=== PATIENT | male | born 1955 | race Caucasian/White ===

== ENCOUNTER 2016-10-17 19:19 | Emergency (ER) | payer OTHER ==
[~2016-10-17] VITALS: Ht 162.6 cm; Wt 65.0 kg
[~2016-10-17 19:19] MED LIST: ASPI81 PO; CYMB60CA PO; DIAZ10TA2 PO; ENOX60P SQ; GABA300 PO; LIDO5DIS35 TD; METO50TA PO; PANT20 PO; PERC10TA27 PO; PERC5TAB12 PO; SUCR1TAB PO; WARF4 PO; ZOCO10TA PO
[2016-10-17 19:22] VITALS: BP 147/99; PULSE 98; RESP 15; TEMP 98.1; O2SAT 95
[2016-10-17] MEDS ORDERED: PERC10TA27 PO (19:50)
[2016-10-17] MEDS ORDERED: CARA1TAB6 PO (19:50)
[2016-10-17] MEDS ORDERED: CYMB60CA PO (19:50)
[2016-10-17] MEDS ORDERED: ZOCO10TA PO (19:50)
[2016-10-17] MEDS ORDERED: ASPI81CH CHEW (19:50)
[2016-10-17] MEDS ORDERED: XARE20TA PO (19:50)
[2016-10-17] MEDS ORDERED: PANT20 PO (19:50)
[2016-10-17] MEDS ORDERED: METO50TA PO (19:50)
[2016-10-17] MEDS ORDERED: GABA600T PO (19:50)
[2016-10-17] MEDS ORDERED: DIAZ10 PO (19:50)
[2016-10-17] MEDS ORDERED: FENT50DI T-DERMAL (19:50)
--- NOTE | 2016-10-17 21:01 | PD ---
HPI Chief Complaint: Fall Time Seen by Provider: 21:01 Travel History International Travel<30 days: No Contact w/Intl Traveler<30days: No Traveled to known affect area: No History of Present Illness HPI 61-year-old male with history of CVA, ambulatory with cane assistance, presents to emergency department following a trip and fall. Patient struck his head on the ground. He did not lose consciousness. Patient is on anticoagulation therapy and was concerned with the bleeding did not stop. He contacted his neighbor who brought him to the emergency department. Patient has been drinking alcohol this evening. Denies any focal deficits weakness. No nausea or vomiting. No chest tightness. He has no other symptoms to report. PFSH Past Medical History Hx Anticoagulant Therapy: Yes (XARELTO) Autoimmune Disease: No Depression: Yes Cancer: Yes (ESOPHAGUS) Cardiovascular Problems: No Chemotherapy: Yes Cerebrovascular Accident: Yes Diabetes: No Diminished Hearing: No Endocrine: No Glaucoma: No Genitourinary: No Hepatitis: No Hiatal Hernia: No Hypertension: Yes Immune Disorder: No Implanted Vascular Access Dvce: Yes Medical other: Yes (MULTI MINISTROKES) Neurologic: Yes Respiratory: No Immunizations Current: Yes Thyroid Disease: No Ulcer: Yes Tetanus Vaccination: < 5 Years Past Surgical History Abdominal Surgery: Yes Appendectomy: Yes Body Medical Devices: C3 and C4 spinal fusion Neurologic Surgery: Yes (C-3 & C-4 /C-5 & C-6 FUSION PLATE) Oral Surgery: Yes (MULTI ESOPH DILATIONS) Pacemaker: No Thoracic Surgery: Yes (CHEMOPORT INPLANTED AND REMOVED) Other Surgery: Yes Social History Alcohol Use: Yes (3 X A WEEK) Tobacco Use: Yes (1/2PPD) Substance Use: No Allergies-Medications (Allergen,Severity, Reaction): Coded Allergies: No Known Allergies (Verified , 10/17/16) Reported Meds & Prescriptions Reported Meds & Active Scripts Active Reported Fentanyl Patch 72 HR (Fentanyl) 50 Mcg/Hr Patch 50 Mcg T-DERMAL Q72H Remove old patch when new one placed. Xarelto (Rivaroxaban) 20 Mg Tab 20 Mg PO DAILY Carafate (Sucralfate) 1 Gm Tab 1 Gm PO QID On empty stomach Zocor (Simvastatin) 10 Mg Tab 10 Mg PO DAILY Protonix (Pantoprazole Sodium) 20 Mg Tab 20 Mg PO BID Percocet (Oxycodone-Acetaminophen) 10-325 mg Tab 1 Tab PO Q6H PRN Metoprolol Tartrate 50 Mg Tab 50 Mg PO BID Gabapentin 600 Mg Tab 600 Mg PO TID Leilaalta (Duloxetine HCl) 60 Mg Capdr 60 Mg PO DAILY Valium (Diazepam) 10 Mg Tab 10 Mg PO TID PRN Aspirin 81 Mg Chew 81 Mg CHEW DAILY Review of Systems Except as stated in HPI: all other systems reviewed are Neg Physical Exam Narrative GENERAL: Well-nourished, well-developed male patient, ambulatory with cane assistance, no acute distress SKIN: Warm and dry. 2 cm laceration to the right posterior parietal scalp. Bleeding is controlled. HEAD: Normocephalic. EYES: No scleral icterus. No injection or drainage. EOMI. PERRL NECK: Supple, trachea midline. No JVD or lymphadenopathy. CARDIOVASCULAR: Regular rate and rhythm without murmurs, gallops, or rubs. RESPIRATORY: Breath sounds coarse, equal bilaterally. No accessory muscle use. GASTROINTESTINAL: Abdomen soft, non-tender, nondistended. MUSCULOSKELETAL: No cyanosis, or edema. BACK: Nontender without obvious deformity. No CVA tenderness. NEUROLOGICAL: Awake and alert. Cranial nerves II through XII intact. Five out of 5 muscle strength in all muscle groups. Normal speech. Data Data Last Documented VS Vital Signs Date Time Temp Pulse Resp B/P Pulse Ox O2 Delivery O2 Flow Rate FiO2 10/17/16 22:49 78 16 154/87 96 10/17/16 20:07 Room Air 10/17/16 19:[address] Brain W/O Iv Contrast(Rout) (10/17/16 ) Ct Cerv Spine W/O Contrast (10/17/16 ) Iv Access Insert/Monitor (10/17/16 19:49) Complete Blood Count With Diff (10/17/16 19:49) Basic Metabolic Panel (Bmp) (10/17/16 19:49) Coag Profile (10/17/16 19:49) Alcohol (Ethanol) (10/17/16 19:49) Chest, Single Ap (10/17/16 ) Electrocardiogram (10/17/16 ) Labs Laboratory Tests Test 10/17/16 20:25 White Blood Count 8.0 TH/MM3 Red Blood Count 4.62 MIL/MM3 Hemoglobin 16.1 GM/DL Hematocrit 46.0 % Mean Corpuscular Volume 99.6 FL Mean Corpuscular Hemoglobin 34.7 PG Mean Corpuscular Hemoglobin 34.9 % Concent Red Cell Distribution Width 13.5 % Platelet Count 268 TH/MM3 Mean Platelet Volume 9.4 FL Neutrophils (%) (Auto) 61.6 % Lymphocytes (%) (Auto) 27.6 % Monocytes (%) (Auto) 8.5 % Eosinophils (%) (Auto) 1.7 % Basophils (%) (Auto) 0.6 % Neutrophils # (Auto) 4.9 TH/MM3 Lymphocytes # (Auto) 2.2 TH/MM3 Monocytes # (Auto) 0.7 TH/MM3 Eosinophils # (Auto) 0.1 TH/MM3 Basophils # (Auto) 0.1 TH/MM3 CBC Comment DIFF FINAL Differential Comment Prothrombin Time 9.7 SEC Prothromb Time International 0.9 RATIO Ratio Activated Partial 27.8 SEC Thromboplast Time Sodium Level 139 MEQ/L Potassium Level 3.5 MEQ/L Chloride Level 101 MEQ/L Carbon Dioxide Level 25.8 MEQ/L Anion Gap 12 MEQ/L Blood Urea Nitrogen 15 MG/DL Creatinine 0.78 MG/DL Estimat Glomerular Filtration 101 ML/MIN Rate Random Glucose 93 MG/DL Calcium Level 9.1 MG/DL Ethyl Alcohol Level 238 MG/DL MDM Medical Decision Making Medical Screen Exam Complete: Yes Emergency Medical Condition: Yes Medical Record Reviewed: Yes Differential Diagnosis Minor head injury versus intracranial hemorrhage versus scalp contusion versus skull fracture Narrative Course 61-year-old male presents to emergency department for evaluation following a fall and striking his head. He is on anticoagulation therapy. CT imaging of the brain is without acute intracranial abnormality. There is persistent encephalomalacia of the left cerebellar hemisphere. CT of the cervical spine shows status post fusion at the C5 6 levels. There is suspected moderate central disc protrusion at the C3 4 level. There is mild disc bulge at the C4 5 level. Scattered areas of facet and uncovertebral hypertroph described in the report. Chest x-rays without acute disease. Wound is cleansed and approximated. Patient is discharged home. He agrees to return immediately with any acute worsening of symptoms. Procedures Procedure Narrative LACERATION LOCATION: Right parietal scalp LENGTH: 2 cm NUMBER OF STITCHES/DIANA: 2 diana REPAIR: The area of the laceration was prepped with Betadine and sterilely draped. The wound was copiously irrigated and explored without evidence of foreign body, tendon injury or neurovascular injury. The wound was closed using diana. This was a single layer repair. Patient tolerated the procedure well. Diagnosis Primary Impression: Scalp laceration Qualified Code: S01.01XA - Scalp laceration, initial encounter Additional Impressions: Minor head injury without loss of consciousness Qualified Code: S09.90XA - Minor head injury without loss of consciousness, initial encounter Alcohol intoxication Qualified Code: F10.120 - Alcohol intoxication, uncomplicated Referrals: Primary Care Physician Patient Instructions: General Instructions, Head Injury (ED), Staple Care (ED) Additional Instructions: Ice to the affected area Follow-up with her primary care provider Diana are to be removed in 10 days. This can be done in the emergency department or primary care provider's office Return immediately to the emergency department with any acute worsening of symptoms Med/Other Pt SpecificInfo: No Change to Meds Disposition: 01 DISCHARGE HOME Condition: Stable Disha Strauss Oct 17, 2016 21:01
--- NOTE | 2016-10-17 21:14 | RADRPT ---
EXAM DATE/TIME: 10/17/2016 20:14 [facility] COMPARISON: CT BRAIN W/O CONTRAST, April 27, 2015, 15:12. INDICATIONS : Trauma; fall. RADIATION DOSE: 33.25 CTDIvol (mGy) MEDICAL HISTORY : Cerebrovascular disease. Carcinoma, esophageal. Hypertension. SURGICAL HISTORY : cervical fusion ENCOUNTER: Initial ACUITY: 1 day PAIN SCALE: 6/10 LOCATION: cranial TECHNIQUE: Multiple contiguous axial images were obtained of the head. Using automated exposure control and adj ustment of the mA and/or kV according to patient size, radiation dose was kept as low as reasonably a chievable to obtain optimal diagnostic quality images. FINDINGS: CEREBRUM: The ventricles are normal for age. No evidence of midline shift, mass lesion, hemorrhage or acute in farction. No extra-axial fluid collections are seen. POSTERIOR FOSSA: There is an area of stable encephalomalacia involving the posterior left cerebellar hemisphere. Other mohan the cerebellum and brainstem are intact. The 4th ventricle is midline. The cerebellopontine an gle is unremarkable. EXTRACRANIAL: The visualized portion of the orbits is intact. SKULL: The calvaria is intact. No evidence of skull fracture. CONCLUSION: No acute abnormality is seen. There is persistent encephalomalacia at the left cerebellar hemisphere. Edilberto Recio MD on October 17, 2016 at 21:11 Board Certified Radiologist. This report was verified electronically.
[2016-10-17 21:17] LABS: AUTOMATED NEUTROPHIL # 4.9 TH/MM3 (1.8-7.7); BASOPHIL # 0.1 TH/MM3 (0-0.2); BASOPHIL % 0.6 % (0.0-2.0); EOSINOPHIL # 0.1 TH/MM3 (0-0.4); EOSINOPHIL % 1.7 % (0.0-4.0); HEMO FLAGS DIFF FINAL; LYMPH % 27.6 % (9.0-44.0); LYMPHOCYTE # 2.2 TH/MM3 (1.0-4.8); MEAN CELL VOLUME 99.6 FL (80.0-100.0); MEAN CORPUSCULAR HEMOGLOBIN 34.7 PG (27.0-34.0); MEAN CORPUSCULAR HGB CONC 34.9 % (32.0-36.0); MONO % 8.5 % (0.0-8.0); NEUT % 61.6 % (16.0-70.0); PLATELET COUNT 268 TH/MM3 (150-450); RED BLOOD COUNT 4.62 MIL/MM3 (4.50-5.90); RED CELL DISTRIBUTION WIDTH 13.5 % (11.6-17.2)
[2016-10-17 21:18] LABS: APTT (PATIENT) 27.8 SEC (24.3-30.1); INTERNATIONAL NORMALIZED RATIO 0.9 RATIO; PROTHROMBIN TIME - PATIENT 9.7 SEC (9.8-11.6)
[2016-10-17 21:22] LABS: BICARBONATE 25.8 MEQ/L (21.0-32.0)
[2016-10-17 21:23] LABS: POTASSIUM 3.5 MEQ/L (3.5-5.1)
--- NOTE | 2016-10-17 22:04 | RADRPT ---
EXAM DATE/TIME: 10/17/2016 20:49 [facility] COMPARISON: CHEST SINGLE AP, April 26, 2015, 12:50. INDICATIONS : Syncopal episode. Head laceration. MEDICAL HISTORY : None. SURGICAL HISTORY : None. ENCOUNTER: Initial ACUITY: 1 day PAIN SCORE: 0/10 LOCATION: chest FINDINGS: A single view of the chest demonstrates the lungs to be symmetrically aerated without evidence of mas s, infiltrate or effusion. The cardiomediastinal contours are unremarkable. There is an anterior cer vical fusion plate present. CONCLUSION: No acute disease. Edilberto Recio MD on October 17, 2016 at 22:03 Board Certified Radiologist. This report was verified electronically.
--- NOTE | 2016-10-17 22:35 | RADRPT ---
EXAM DATE/TIME: 10/17/2016 20:14 [facility] COMPARISON: No previous studies available for comparison. INDICATIONS : Trauma; fall. RADIATION DOSE: 20.30 CTDIvol (mGy) MEDICAL HISTORY : Cerebrovascular disease. Carcinoma, esophageal. Hypertension. SURGICAL HISTORY : cervical fusion ENCOUNTER: Initial ACUITY: 1 day PAIN SCALE: 6/10 LOCATION: Neck TECHNIQUE: Volumetric scanning of the cervical spine was performed. Multiplanar reconstructions i n the sagittal, coronal and oblique axial planes were performed. Using automated exposure control a nd adjustment of the mA and/or kV according to patient size, radiation dose was kept as low as reason ably achievable to obtain optimal diagnostic quality images. FINDINGS: VERTEBRAE: The patient is status post fusion at the C5-C6 level with an anterior cervical fusion plate and a stabilization device at the C5-6 disc space. The cervical vertebral bodies are normal in height. They are normally aligned. The craniovertebral junction is intact. The C1 ring is intact. T he dens is intact. C2-C3: There is minimal posterior bulging and osteophytic ridging without significant stenosis. The neural foramina are normal. There is bilateral facet hypertrophy. C3-C4: There is a mild to moderate central disc protrusion. There continues to be CSF around the co rd. There is mild uncovertebral hypertrophy. There is moderate facet hypertrophy being worse on the right. The neural foramina are grossly normal. C4-C5: There is mild bulging of the posterior disc margin. There appears to be CSF around the cord. There is uncovertebral hypertrophy and bilateral facet hypertrophy. The neural foramina are grossl y intact. C5-C6: The patient is status post fusion at this level. There is some minimal posterior bony ridgin g at the disc space. This causes a mild impression on the thecal sac. There is uncovertebral hypert rophy. The neural foramina are normal. C6-C7: Disc demonstrates mild decreased height. There is very minimal posterior osteophytic ridging present. Significant stenosis is not appreciated. The neural foramina are normal. The facet joints are intact. C7-T1: Posterior disc margin is grossly intact. Significant spinal stenosis is not appreciated. Ther e is mild facet hypertrophy. CONCLUSION: 1. Status post fusion at the C5-C6 level. 2. Suspected moderate central disc protrusion at the C3-C4 level. 3. Mild disc bulge at the C4-C5 level. 4. Scattered areas of facet and uncovertebral hypertrophy as described above. Edilberto Recio MD on October 17, 2016 at 21:15 Board Certified Radiologist. This report was verified electronically.
[2016-10-17 22:49] VITALS: BP 154/87
--- NOTE | 2016-10-18 16:36 | EKG ---
Date Performed: 10/17/2016 Time Performed: 20:08:48 PTAGE: 61 years EKG: Sinus rhythm Compared to previous tracing, rhythm has converted from atrial fibrillation to sinus rhythm NORMAL E CG PREVIOUS TRACING : 04/27/2015 15.26 DOCTOR: Osmar Colón Interpretating Date/Time 10/18/2016 16:34:46
== END 2016-10-17 22:50 | disposition home or self-care (01) ==
LOC: NEPB 19:19
DX: S01.01XA Laceration without foreign body of scalp, initial encounter (principal); F10.120 Alcohol abuse with intoxication, uncomplicated; I10 Essential (primary) hypertension; F17.210 Nicotine dependence, cigarettes, uncomplicated; Y90.7 Blood alcohol level of 200-239 mg/100 ml; W01.0XXA Fall on same level from slipping, tripping and stumbling without subsequent striking against object, initial encounter
CPT/HCPCS: 12001; 70450; 71010; 72125; 80048; 80320; 85025; 85610; 85730; 93005

== ENCOUNTER → 2017-03-16 | Day surgery (SDC) | payer OTHER ==
[~2017-03-16] MED LIST changes: -ASPI81 PO; +ASPI81CH CHEW; +CARA1TAB6 PO; +DIAZ10 PO; -DIAZ10TA2 PO; -ENOX60P SQ; +FENT50DI T-DERMAL; -GABA300 PO; +GABA600T PO; +LACTATED RINGER'S 1000 ML INJ 1,000 ML ONE; -LIDO5DIS35 TD; -PERC5TAB12 PO; +PROPOFOL 200 MG/20 ML AMP IV ONE; -SUCR1TAB PO; -WARF4 PO; +XARE20TA PO
--- NOTE | 2017-03-16 11:11 | GIPROC ---
[facility] [address] [facility], [address] EGD PROCEDURE REPORT EXAM DATE: 03/16/2017 PATIENT NAME: Blayne Hong MR #: [id number] BIRTHDATE: 1955 ATTENDING: Zeinab Nair MD ORDER #: [id number] POND WORKER: Raquel Hedrick RN STATUS: outpatient INDICATIONS: The patient is a 61 yr old male here for an EGD due to dysphagia and H/O thorat cancer PROCEDURE PERFORMED: EGD w/ biopsy EGD w/ dilation of esophagus via guidewire MEDICATIONS: None and Per Anesthesia. TOPICAL ANESTHETIC: none CONSENT: The patient understands the risks and benefits of the procedure and understands that these risks include, but are not limited to: sedation, allergic reaction, infection, perforation and/or bleeding. Alternative means of evaluation and treatment include, among others: physical exam, x-rays, and/or surgical intervention. The patient elects to proceed with this endoscopic procedure. medical equipment was checked for proper function. Hand hygiene and appropriate measures for infection prevention was taken. After the risks, benefits and alternatives of the procedure were thoroughly explained, Informed consent was verified, confirmed and timeout was successfully executed by the treatment team. The patient was anesthetized with topical anesthesia and the EG-[id number] ([id number]) and EC-[id number] ([id number]) endoscope was introduced through the mouth and advanced to the second portion of the duodenum. Retroflexed views revealed no abnormalities The gastroscope was then slowly withdrawn and removed. Esophagitis grade B Bx from distal esophagus. Gastritis Bx from antrum. Flat folds in the duodenum with erythema Bx from second portion. Esophageal stricture s/p dilation saavary guidewirs size 17 mm. The endoscopy was otherwise normal. ADVERSE EVENTS: There were no complications. IMPRESSIONS: 1. Esophagitis grade B Bx from distal esophagus 2. Gastritis Bx from antrum 3. Flat folds in the duodenum with erythema Bx from second portion 4. Esophageal stricture s/p dilation saavary guidewirs size 17 mm 5. Normal endoscopy otherwise 6. Retroflexed views revealed no abnormalities RECOMMENDATIONS: 1. Await biopsy results. Biopsy results will not be ready for 7-10 days. If you don't hear from us in two weeks, call our office for biopsy results. 2. Anti-reflux regimen 3. Avoid NSAIDS 4. Protonix 40mg Q AM PATIENT CONDITION: stable DISPOSITION: Home REPEAT EXAM: Return as needed for EGD Zeinab Nair MD eSigned: Zeinab Nair MD 03/16/2017 11:11 AM cc: To Lucio M.D. PATIENT NAME: Blayne Hong MR#: [id number]
== END | disposition home or self-care (01) ==
LOC: ESDC 09:17
PROVIDERS: ATTEND Hospitalist
DX: R13.10 Dysphagia, unspecified (principal); K29.50 Unspecified chronic gastritis without bleeding; K20.9 Esophagitis, unspecified; K22.2 Esophageal obstruction; Z85.01 Personal history of malignant neoplasm of esophagus
CPT/HCPCS: 00740; 43239; 43248; 88305; 88312; J3010; J7120

== ENCOUNTER → 2017-09-18 | Outpatient (CLI) | payer MEDICARE ==
[~2017-09-18] MED LIST changes: +AMIT25TA9 PO; +AMLO10TA2 PO; +ASPI-516 CHEW; -ASPI81CH CHEW; +CHOL5000 PO; +COMMODE 3-IN-11 MIS; +CYAN1TAB24 PO; -LACTATED RINGER'S 1000 ML INJ 1,000 ML ONE; +MULTTAB67 PO; +OXYC1TAB63 PO; +PANT40TA3 PO; -PROPOFOL 200 MG/20 ML AMP IV ONE; +SIMV20TA PO; +WALKER WHEELS/F1 MIS
[2017-09-18 10:23] LABS: BLOOD, URINE NEG (NEG); GLUCOSE,URINE NEG (NEG); HYALINE CAST, URINE 14 /lpf (RARE); KETONE, URINE TRACE mg/dL (NEG); MUCUS URINE FEW /lpf (OCC); NITRITE,URINE NEG (NEG); PH, URINE 5.5 (5.0-8.5); SQUAMOUS EPITHELIAL CELL URINE <1 /hpf (0-5); URINE COLOR DARK-YELLOW (YELLW/STRAW); URINE LEUKOCYTE ESTERASE TRACE (NEG)
[2017-09-18 10:25] LABS: PROTHROMBIN TIME - PATIENT 10.5 SEC (9.8-11.6)
[2017-09-18 10:31] LABS: AUTOMATED NEUTROPHIL # 6.2 TH/MM3 (1.8-7.7); BASOPHIL # 0.1 TH/MM3 (0-0.2); BASOPHIL % 0.8 % (0.0-2.0); EOSINOPHIL # 0.2 TH/MM3 (0-0.4); HEMATOCRIT 48.3 % (39.0-51.0); HEMOGLOBIN 16.7 GM/DL (13.0-17.0); LYMPHOCYTE # 1.3 TH/MM3 (1.0-4.8); MEAN CELL VOLUME 100.2 FL (80.0-100.0); MEAN CORPUSCULAR HEMOGLOBIN 34.6 PG (27.0-34.0); MEAN CORPUSCULAR HGB CONC 34.5 % (32.0-36.0); MEAN PLATELET VOLUME 9.3 FL (7.0-11.0); MONO % 12.2 % (0.0-8.0); MONOCYTE # 1.1 TH/MM3 (0-0.9); PLATELET COUNT 299 TH/MM3 (150-450); RED BLOOD COUNT 4.82 MIL/MM3 (4.50-5.90); WHITE BLOOD COUNT 8.9 TH/MM3 (4.0-11.0)
[2017-09-18 10:41] LABS: BILIRUBIN, URINE NEG (NEG)
[2017-09-18 10:42] LABS: WESTERGREN SEDIMENTATION RATE 1 mm/hr (0-20)
[2017-09-18 10:43] LABS: ALBUMIN 4.3 GM/DL (3.4-5.0); BLOOD UREA NITROGEN 15 MG/DL (7-18); CALCIUM 9.1 MG/DL (8.5-10.1); CHLORIDE 100 MEQ/L (98-107); CREATININE 0.91 MG/DL (0.60-1.30); GLOMERULAR FILTRATION RATE 84 ML/MIN (>89); GLUCOSE,FASTING 102 MG/DL (74-99); SODIUM (NA) 139 MEQ/L (136-145)
[2017-09-18 10:44] LABS: ALT (GPT) 121 U/L (12-78); AST (GOT) 61 U/L (15-37)
[2017-09-18 10:46] LABS: ALKALINE PHOSPHATASE 102 U/L (45-117); TOTAL BILIRUBIN ADULT 0.6 MG/DL (0.2-1.0)
--- NOTE | 2017-09-18 11:58 | EKG ---
Date Performed: 09/18/2017 Time Performed: 09:45:36 PTAGE: 62 years EKG: Sinus rhythm . Inferior T wave changes are nonspecific Borderline ECG No significant change from prior electrocard iogram. PREVIOUS TRACING : 10/17/2016 20.08 DOCTOR: Rene Rivera Interpretating Date/Time 09/18/2017 11:57:38
--- NOTE | 2017-09-18 12:16 | RADRPT ---
EXAM DATE/TIME: 09/18/2017 11:37 [facility] COMPARISON: CHEST SINGLE AP, October 17, 2016, 20:49. INDICATIONS : Evaluate for pneumonia, pneumothorax, and communicable diseases. Pre-op left hip surgery. MEDICAL HISTORY : Carcinoma, esophageal. Stroke. Hypertension. Radiation and chemo. SURGICAL HISTORY : Cervical fusion. ENCOUNTER: Initial ACUITY: 1 day PAIN SCORE: 0/10 LOCATION: Bilateral chest FINDINGS: PA and lateral views of the chest demonstrate a normal-sized cardiac silhouette. There is no effusion , consolidation, or pneumothorax. The bones and soft tissues demonstrate no acute abnormality. Cervic al spine hardware is present. CONCLUSION: No acute cardiopulmonary abnormality is identified. Edilberto Britt MD on September 18, 2017 at 12:14 Board Certified Radiologist. This report was verified electronically.
== END ==
LOC: CPRE 08:45
PROVIDERS: ATTEND Orthopaedic Surgery
DX: Z01.812 Encounter for preprocedural laboratory examination (principal); Z01.810 Encounter for preprocedural cardiovascular examination; Z01.811 Encounter for preprocedural respiratory examination; M79.609 Pain in unspecified limb; M25.50 Pain in unspecified joint; Z96.60 Presence of unspecified orthopedic joint implant
CPT/HCPCS: 71046; 80053; 81001; 85025; 85610; 85652; 85730; 93005

== ENCOUNTER 2017-10-07 05:26 | Inpatient (IN) | payer MEDICARE ==
[~2017-10-07] VITALS: Ht 162.6 cm; Wt 73.7 kg
[~2017-10-07 05:26] MED LIST changes: -ASPI-516 CHEW; -COMMODE 3-IN-11 MIS; -DIAZ10 PO; -GABA600T PO; -PANT20 PO; -PERC10TA27 PO; -WALKER WHEELS/F1 MIS; -ZOCO10TA PO
[2017-10-07] MEDS ORDERED: POVIDONE IODINE 5% (ANTISEPSIS KIT) 4 APPLICATIONS EACH NARE PRN (06:00)
[2017-10-07] MEDS ORDERED: VANCOMYCIN 1000 MG/NS 250 ML (for <70 kg) IV SCH ×2 (06:00)
[2017-10-07] MEDS ORDERED: ceFAZolin 2 GM PREMIX 50 ML IV SCH (06:00)
[2017-10-07] MEDS ORDERED: INSULIN HUMAN REGULAR 1,000 UNITS/10 ML VIAL SQ PRN (06:00)
[2017-10-07] MEDS ORDERED: CHLORHEXIDINE GLUCONATE 2 % 1 PACK (2 CLOTHS) TOPICAL PRN (06:00)
[2017-10-07] MEDS ORDERED: LACTATED RINGER'S 1000 ML IV PRN (06:00)
[2017-10-07] MEDS ORDERED: METOPROLOL TARTRATE 25 MG TAB PO PRN (06:00)
[2017-10-07] MEDS ORDERED: SODIUM CHLORID 0.9% 500 ML IV PRN (06:00)
[2017-10-07] MEDS ORDERED: POVIDONE IODINE 7.5% SCRUB 118 ML BOTTLE TOPICAL SCH (06:00)
[2017-10-07] MEDS ORDERED: GENTAMICIN SULFATE 80 MG/2 ML VIAL ONE (06:13)
--- NOTE | 2017-10-07 06:58 | HHI.DCPOC ---
Discharge Care Plan Diagnosis: (1) Osteoarthritis of left hip (2) Status post total hip replacement, left Your Health Problems Are: Difficulty with ADL Goals to Promote Your Health * To prevent worsening of your condition and complications * To maintain your health at the optimal level Directions to Meet Your Goals Take your medications as prescribed Follow your dietary instruction Follow activity as directed Keep your appointments as scheduled Take your immunizations and boosters as scheduled If your symptoms worsen call your PCP, if no PCP go to Urgent Care Center or Emergency Room Smoking is Dangerous to Your Health. Avoid second hand smoke Call the 24-hour hour crisis hotline for domestic abuse at [place] Oct 07, 2017 06:58
--- NOTE | 2017-10-07 06:59 | HHI.FF ---
Face to Face Verification Diagnosis: (1) Osteoarthritis of left hip (2) Status post total hip replacement, left Physical Therapy Gait training, Transfer training, bed to chair Hip: Total hip Left LE Weight Bearing: WB as tolerated Left LE Range of Motion: Active ROM Nursing Dressing Changes: Do not change dressing Additional Instructions 1st dressing change in the office I have seen patient Blayne Hong on 10/07/17. My clinical findings support the need for the requested home health care services because: Limited ability to care for self High risk of falls I certify that my clinical findings support that this patient is homebound because: Post-op weakness Unsteady gait/balance [place] Oct 07, 2017 06:59
[2017-10-07] MEDS ORDERED: DEXAMETHASONE SOD PHOS 20 MG/5 ML VIAL IV SCH (07:00)
[2017-10-07] MEDS ORDERED: EXPAREL PERI-ARTICULAR INJECTION (TOTAL VOL. 60 ML) P-ARTICULR SCH ×2 (07:00)
[2017-10-07] MEDS ORDERED: SODIUM CHLORIDE 0.9% IV SCH ×2 (07:00→08:45)
[2017-10-07] MEDS ORDERED: TRANEXAMIC ACID IV SCH ×2 (07:00→08:45)
[2017-10-07] MEDS ORDERED: WALKER WHEELS/F1 MIS (07:01)
[2017-10-07] MEDS ORDERED: COMMODE 3-IN-11 MIS (07:01)
--- NOTE | 2017-10-07 08:39 | RADRPT ---
EXAM DATE/TIME: 10/07/2017 07:34 [facility] COMPARISON: No previous studies available for comparison. INDICATIONS : Left hip pain, anterior hip replacement done in operating room. MEDICAL HISTORY : None. SURGICAL HISTORY : None. ENCOUNTER: Initial ACUITY: 1 day PAIN SCORE: Non-responsive. LOCATION: Left hip. FINDINGS: 2 projection examination of the left hip reveals total hip arthroplasty. Hardware appears intact. Ali gnment is anatomic. His last adjacent pelvis is grossly unremarkable. CONCLUSION: Satisfactory operative appearance Edilberto Hernandez MD on October 07, 2017 at 8:36 Board Certified Radiologist. This report was verified electronically.
--- NOTE | 2017-10-07 08:48 | PD.OP ---
cc: Darien Ayala MD Operative Report Date of Surgery: Oct 07, 2017 Preoperative Diagnosis: Left hip severe osteoarthritis Postoperative Diagnosis: Same Procedure: Left total hip arthroplasty Anesthesia: Spinal Surgeon: Darien Ayala Cryptographic Clerk(s): ROSEMARY Solis The surgical procedure was assisted by my Advanced Registered Nurse Practitioner. My INFORMATION ASSURANCE SPECIALIST presence was necessary throughout this case for the manipulation and positioning of the surgical extremity. My INFORMATION ASSURANCE SPECIALIST was assisting me throughout the duration of this procedure. The skill set of an Advance Registered Nurse Practitioner was medically necessary to complete this procedure. During the surgical case, the eye technician was working at the back table and the Advance Registered Nurse Practitioner was directly assisting me. Operation and Findings: IMPLANT DESCRIPTION: 1. [place] Gription Cup, acetabular size 52. 2. [place] AltrX polyethylene, neutral. 4. Corail femoral stem size 13, no collar, standard offset. 5. Femoral head/neck ceramic, 36, + 5.0. ESTIMATED BLOOD LOSS: 150 cc. JUSTIFICATION FOR PROCEDURE: The patient has end-stage osteoarthritis to the hip. There is an attached conservative measures pathway form in the chart that describes the nonoperative measures that were undertaken prior to consideration of surgical management. The patient understood the risks and benefits of surgical management. See my office notes for further details. PROCEDURE: The patient was brought back to the operative theatre. Adequate anesthesia was obtained. The patient received intravenous vancomycin and Ancef. The patient was carefully placed on the operative table. The lower extremity was prepped and draped in the usual sterile fashion. Fluoroscopic images were obtained. We made a standard anterior incision over the hip. We dissected through the TFL fascia, exposing the anterior capsule. Arthrotomy was performed in a T-shaped fashion. The capsule was tagged with a #2 FiberWire. End-stage arthritis was identified. Osteotomy was performed through the femoral neck exposing the acetabulum. Remnants of the labrum were resected and osteophytes were removed. We sequentially reamed the acetabulum. We trialed the hip and placed the final cup into position. This was done under fluoroscopic guidance to obtain the appropriate inclination and anteversion. A manhole cover was placed into the acetabular component. We then placed the final polyethylene into position and confirmed that it was well seated. Capsular attachments on the calcar and the inner aspect of the greater trochanter were resected. On the proximal aspect of the femur we used a rongeur , box osteotome, canal finder, sequential broaches and lateralizing rasp. We calcar planed the proximal femur. Then thoroughly irrigated the wound. We trialed the hip with the appropriate size stem. We placed the final stem in to position and trialed again. The hip was stable while it was externally rotated 70 degrees when the leg was lowered to the floor. The final head was applied, and final fluoroscopic images were obtained. The wound was thoroughly irrigated again. Interarticular injection of liposomal bupivacaine was given. The capsule was closed with #2 FiberWire and #1 Vicryl. The deep fascia was closed with a #2 Stratafix, followed by 2-0 Vicryl in the skin and Dermabond dressing. Postop plan is to weight-bear as tolerated. DVT prophylaxis will be performed with ALEXEY Anand, early mobilization, and Xarelto 10 mg daily while in the hospital, with resumption of outpatient dose of Xarelto 20 mg daily after discharge. Darien Ayala MD Oct 07, 2017 08:48
[2017-10-07] MEDS: SUCRALFATE 1 GM TAB PO SCH ×4 (09:00→20:48)
[2017-10-07] MEDS ORDERED: NALOXONE HCL 0.4 MG/ML AMP IV PUSH PRN (09:00)
[2017-10-07] MEDS ORDERED: diphenhydrAMINE HCL 50 MG/ML VIAL IV PUSH PRN (09:00)
[2017-10-07] MEDS ORDERED: ALUMINUM/MAGNESIUM/SIMETH 30 ML CUP PO PRN (09:00)
[2017-10-07] MEDS ORDERED: ONDANSETRON HCL 4 MG/2 ML VIAL IVP PRN (09:00)
[2017-10-07] MEDS ORDERED: DO NOT ADM ANY ANTICOAGULANT DRUGS PRN (09:06)
[2017-10-07] MEDS ORDERED: MIDAZOLAM HCL 2 MG/2 ML VIAL ONE (09:15)
[2017-10-07] MEDS: SODIUM CHLOR 0.9% 1000 ML INJ 1,000 ML IV SCH ×2 (09:20→19:00)
[2017-10-07] MEDS ORDERED: *morphine SULFATE 4 MG/ML PERIprocedure ONLY ONE (09:49)
--- NOTE | 2017-10-07 10:24 | RADRPT ---
EXAM DATE/TIME: 10/07/2017 09:23 [facility] COMPARISON: No previous studies available for comparison. INDICATIONS : Post-op Left Hip. MEDICAL HISTORY : Cerebrovascular disease. Carcinoma, esophageal. Hypertension SURGICAL HISTORY : Cervical fusion. ENCOUNTER: Initial ACUITY: 1 day PAIN SCORE: 0/10 LOCATION: Left Hip. FINDINGS: The patient is status post a total hip arthroplasty with a bipolar prosthesis. Prosthesis is well-sea vladislav. Alignment is anatomic. A fracture is not appreciated. CONCLUSION: Anatomic alignment. Bala Baires MD FACR Bala Baires MD FACR on October 07, 2017 at 10:22 Board Certified Radiologist. This report was verified electronically.
[2017-10-07 11:45] VITALS: BP 108/81; PULSE 91; RESP 18; TEMP 96.3; O2SAT 94
[2017-10-07] MEDS ORDERED: ePHEDrine/NS 25 MG/5 ML SYRINGE IV ONE (12:00)
[2017-10-07] MEDS ORDERED: oxyCODONE/ACETAMINOPHEN 10 MG/325 MG TAB PO PRN (12:00)
[2017-10-07] MEDS ORDERED: LIDOCAINE HCL 1% PF 5 ML SYRINGE OTHER ONE (12:00)
[2017-10-07] MEDS ORDERED: PHENYLEPH/NS 1000 MCG/10 ML SYR IV ONE (12:00)
[2017-10-07] MEDS ORDERED: BISACODYL 10 MG SUPP RECTAL PRN (12:00)
[2017-10-07] MEDS ORDERED: PROPOFOL 200 MG/20 ML AMP IV ONE (12:00)
[2017-10-07] MEDS ORDERED: MAGNESIUM HYDROXIDE SUSP 30 ML CUP PO PRN (12:00)
[2017-10-07] MEDS ORDERED: LACTATED RINGER'S 1000 ML INJ 1,000 ML IV ONE (12:00)
[2017-10-07] MEDS: PRAVASTATIN SOD 40 MG TAB PO SCH (12:41)
[2017-10-07] MEDS ORDERED: Post-op Orders (for Pharmacy) XX ONE (13:00)
[2017-10-07] MEDS: MORPHINE SULFATE 2 MG/ML INJ IV PUSH PRN ×2 (15:12→20:50)
[2017-10-07 16:55] VITALS: BP 137/93; PULSE 108; RESP 16; TEMP 97.3; O2SAT 97
[2017-10-07] MEDS: oxyCODONE/ACETAMINOPHEN 10 MG/325 MG TAB PO PRN (17:30)
--- NOTE | 2017-10-07 18:10 | PD.CONS ---
HPI Service [facility] Consult Requested By Primary Care Physician Marysol Maria MD Diagnoses: History of Present Illness 62-year-old male with a history of atrial fibrillation, stroke in the past with reported left-sided weakness, , hypertension, esophageal cancer status post chemotherapy, radiation, multiple esophageal dilations for strictures. He is currently postop day 0 for elective left total hip arthroplasty. Patient reports left hip pain is bothersome. Denies any chest pain or shortness of breath. Denies any nausea or vomiting. Denies any lightheadedness or dizziness. Denies palpitations. Says he otherwise feels well. He says he held his Eliquis 5 days prior to surgery. He has not given himself Lovenox shots, however has given himself Lovenox shots for bridging in the past. Review of Systems Except as stated in HPI: all other systems reviewed are Neg Performed and negative except for history of present illness and past medical history. Past Family Social History Allergies: Coded Allergies: No Known Allergies (Verified Allergy, Unknown, 10/07/17) Past Medical History Atrial fibrillation Hyperlipidemia Hypertension B12 deficiency COPD History of CVA with residual left-sided weakness reported. Strip esophageal cancer status post chemotherapy and radiation in remission. Depression. GERD. Past Surgical History Multiple esophageal dilations. Patient denies any difficulty swallowing currently. Appendectomy tonight Reported Medications Medications reviewed with the patient and confirmed in the electronic medical record. Active Ordered Medications Current Medications Medications (Trade) Dose Ordered Sig/Parth Route Start Time Stop Time Status Last Admin Lactated Ringer's 1,000 ml @ 30 mls/hr Q24H PRN IV 10/07/17 06:00 10/10/17 05:59 10/07/17 06:00 Sodium Chloride 500 ml @ 30 mls/hr [id number] PRN IV 10/07/17 06:00 10/10/17 05:59 (Lopressor) 25 mg COLD ROLLING COORDINATOR PRN PO 10/07/17 06:00 10/10/17 05:59 (Betadine 5% Antisepsis Kit) 1 applic COLD ROLLING COORDINATOR PRN EACH NARE 10/07/17 06:00 10/10/17 05:59 10/07/17 06:18 (Chlorhexidine 2% Cloth) 3 pack COLD ROLLING COORDINATOR PRN TOPICAL 10/07/17 06:00 10/10/17 05:59 10/07/17 05:45 (NovoLIN R INJ) See Protocol Table ... COLD ROLLING COORDINATOR PRN SQ 10/07/17 06:00 10/10/17 05:59 (Betadine 7.5% Scrub) 1 applic ONCE TOPICAL 10/07/17 06:00 10/10/17 05:59 Cefazolin Sodium/ Dextrose 50 ml @ 100 mls/hr COLD ROLLING COORDINATOR IV 10/07/17 06:00 10/10/17 05:59 10/07/17 06:19 Vancomycin HCl 1000 mg/Sodium Chloride 250 ml @ 250 mls/hr COLD ROLLING COORDINATOR IV 10/07/17 06:00 10/10/17 05:59 10/07/17 06:15 Tranexamic Acid 740 mg/Sodium Chloride 107.4 ml @ 200 mls/hr ONCE IV 10/07/17 07:00 10/08/17 13:00 10/07/17 07:04 Bupivacaine Liposome 20 ml/ Sodium Chloride 60 ml @ 120 mls/hr ONCE P-ARTICULR 10/07/17 07:00 10/08/17 13:00 10/07/17 07:40 (Elavil) 25 mg HS PO 10/07/17 21:00 (Norvasc) 10 mg DAILY PO 10/08/17 09:00 (Cymbalta Dr) 60 mg DAILY PO 10/08/17 09:00 (Lopressor) 50 mg BID PO 10/07/17 21:00 (Protonix) 40 mg DAILY PO 10/08/17 09:00 (Carafate) 1 gm QID PO 10/07/17 09:00 10/07/17 17:30 (Pravachol) 40 mg DAILY PO 10/07/17 12:15 10/07/17 12:41 Sodium Chloride 1,000 ml @ 100 mls/hr Q10H IV 10/07/17 09:00 10/07/17 09:20 Cefazolin Sodium 1000 mg/Sodium Chloride 100 ml @ 200 mls/hr Q6H IV 10/07/17 13:00 10/08/17 01:29 10/07/17 17:31 (Decadron Inj) 10 mg ONCE ONCE IV 10/08/17 07:45 10/08/17 07:46 (Xarelto) 10 mg Q24H PO 10/08/17 09:00 (Theragran M Tab) 1 tab BID PO 10/08/17 21:00 12/07/17 20:59 (Zofran Inj) 4 mg Q6H PRN IVP 10/07/17 09:00 (Colace) 100 mg BID PO 10/08/17 21:00 (Mag-Al Plus Susp Liq) 30 ml Q6H PRN PO 10/07/17 09:00 (Ambien) 5 mg HS PRN PO 10/07/17 21:00 (Dulcolax Supp) 10 mg DAILY PRN RECTAL 10/07/17 12:00 (Milk Of Magnesia Liq) 30 ml DAILY PRN PO 10/07/17 12:00 (Narcan Inj) 0.4 mg UNSCH PRN IV PUSH 10/07/17 09:00 (Benadryl Inj) 25 mg Q6H PRN IV PUSH 10/07/17 09:00 (Morphine Inj) 2 mg Q3H PRN IV PUSH 10/07/17 12:00 10/07/17 15:12 (Percocet 10-325 Mg) 1 tab Q4H PRN PO 10/07/17 12:00 10/07/17 12:33 (Percocet 10-325 Mg) 2 tab Q4H PRN PO 10/07/17 12:00 10/07/17 17:30 Miscellaneous Information ALL NURSING DEPARTME... UNSCH PRN .XX 10/07/17 09:06 10/08/17 09:05 Family History Father at age 62 secondary to MD. Mother from old age Social History Patient is smoked 3 cigarettes a day since he was a teenager Rare alcohol use. Denies illicit drugs. Physical Exam Vital Signs Vital Signs Date Time Temp Pulse Resp B/P (MAP) Pulse Ox O2 Delivery O2 Flow Rate FiO2 10/07/17 16:55 97.3 108 16 137/93 (108) 97 10/07/17 11:45 96.3 91 18 108/81 (90) 94 10/07/17 10:15 97.5 80 12 117/77 (90) 92 Nasal Cannula 3 10/07/17 10:00 80 12 107/67 (80) 92 Nasal Cannula 3 10/07/17 09:45 79 12 99/69 (79) 92 Nasal Cannula 3 10/07/17 09:30 82 12 108/68 (81) 92 Nasal Cannula 3 10/07/17 09:15 82 12 109/66 (80) 92 Nasal Cannula 3 10/07/17 09:07 97.7 81 11 128/61 (83) 96 Simple Mask 6 10/07/17 06:09 99.7 90 18 147/98 (114) 96 Physical Exam GENERAL: This is a well-nourished, well-developed patient, in no apparent distress. Appears comfortable. SKIN: No rashes, ecchymoses or lesions. Cool and dry. HEAD: Atraumatic. Normocephalic. No temporal or scalp tenderness. EYES: Pupils equal round and reactive. Extraocular motions intact. No scleral icterus. No injection or drainage. ENT: Nose without bleeding, purulent drainage or septal hematoma. Throat without erythema, tonsillar hypertrophy or exudate. Uvula midline. Airway patent. NECK: Trachea midline. No JVD or lymphadenopathy. Supple, nontender, no meningeal signs. CARDIOVASCULAR: Regular rate and rhythm without murmurs, gallops, or rubs. RESPIRATORY: Clear to auscultation. Breath sounds equal bilaterally. No wheezes , rales, or rhonchi. GASTROINTESTINAL: Abdomen soft, non-tender, nondistended. No hepato-splenomegaly , or palpable masses. No guarding. MUSCULOSKELETAL: Extremities without clubbing, cyanosis, or edema. No joint tenderness, effusion, or edema noted. No calf tenderness. Negative Homans sign bilaterally. NEUROLOGICAL: Awake and alert. Cranial nerves II through XII intact. Motor and sensory grossly within normal limits. Five out of 5 muscle strength in all muscle groups. No left-sided weakness detected. Normal speech. Imaging Last Impressions Hip and Pelvis X-Ray 10/07/17 0842 Signed Impressions: Service Date/Time: Saturday, October 07, 2017 09:23 - CONCLUSION: Anatomic alignment. Bala Baires MD Hip X-Ray 10/07/17 0000 Signed Impressions: Service Date/Time: Saturday, October 07, 2017 07:34 - CONCLUSION: Satisfactory operative appearance Edilberto Hernandez MD Assessment and Plan Assessment and Plan //Atrial fibrillation -With history of stroke in the past. This was felt to be secondary to carotid artery disease, however technically with diagnosis of atrial fibrillation would require bridging nonetheless. -Recommend full anticoagulation 24 hours after surgery. We'll discuss with general surgery tomorrow morning. -Continue metoprolol for rate control //Hypertension. Chronic. Continue home amlodipine, metoprolol. //Tobacco abuse. Cessation counseling provided. //Hyperlipidemia. Chronic. Continue home medication. /GERD. Chronic. Continue home PPI. //Depression. Chronic. Continue home medications./ Discussed Condition With Patient, nurse Herbie Ariza MD Oct 07, 2017 18:10
[2017-10-07] MEDS: METOPROLOL TARTRATE 50 MG TAB PO SCH (20:48)
[2017-10-07] MEDS: AMITRIPTYLINE HCL 25 MG TAB PO SCH (20:51)
[2017-10-08] MEDS: oxyCODONE/ACETAMINOPHEN 10 MG/325 MG TAB PO PRN ×5 (00:33→21:01)
[2017-10-08] MEDS: ZOLPIDEM TARTRATE 5 MG TAB PO PRN ×2 (00:33→20:08)
[2017-10-08 04:00] VITALS: BP 128/93; PULSE 88; RESP 15; TEMP 97.3; O2SAT 94
[2017-10-08] MEDS: SODIUM CHLOR 0.9% 1000 ML INJ 1,000 ML IV SCH ×3 (05:00→20:08)
[2017-10-08] MEDS: MORPHINE SULFATE 2 MG/ML INJ IV PUSH PRN ×4 (05:43→23:40)
[2017-10-08 06:38] LABS: HEMATOCRIT 37.1 % (39.0-51.0); HEMOGLOBIN 13.1 GM/DL (13.0-17.0); MEAN CORPUSCULAR HGB CONC 35.3 % (32.0-36.0); MEAN PLATELET VOLUME 9.3 FL (7.0-11.0); PLATELET COUNT 247 TH/MM3 (150-450); RED BLOOD COUNT 3.74 MIL/MM3 (4.50-5.90); RED CELL DISTRIBUTION WIDTH 13.1 % (11.6-17.2); WHITE BLOOD COUNT 10.4 TH/MM3 (4.0-11.0)
[2017-10-08] MEDS: RIVAROXABAN 10 MG TAB PO SCH (07:25)
[2017-10-08] MEDS ORDERED: DEXAMETHASONE SOD PHOS 20 MG/5 ML VIAL IV ONE (07:45)
[2017-10-08 08:00] VITALS: BP 133/85; PULSE 89; RESP 18; TEMP 96.5; O2SAT 98
[2017-10-08] MEDS: PANTOPRAZOLE SOD 40 MG DELAYED RELEASE TAB PO SCH (09:28)
[2017-10-08] MEDS: DULoxetine HCl DR 60 MG CAP PO SCH (09:28)
[2017-10-08] MEDS: METOPROLOL TARTRATE 50 MG TAB PO SCH ×2 (09:28→20:08)
[2017-10-08] MEDS: SUCRALFATE 1 GM TAB PO SCH ×4 (09:28→20:08)
[2017-10-08] MEDS: PRAVASTATIN SOD 40 MG TAB PO SCH (09:29)
[2017-10-08 12:00] VITALS: BP 102/69; PULSE 95; RESP 18; TEMP 98.9; O2SAT 95
--- NOTE | 2017-10-08 12:33 | PD.ORT.PN ---
Subjective Post Op Day #: 1 Subjective Remarks Patient is sitting on side of bed in NAD. Patient reports minimal pain when in bed or sitting and moderate pain when standing or walking. Patient requesting to stay an additional night due to pain. Objective Vitals Vital Signs Date Time Temp Pulse Resp B/P (MAP) Pulse Ox O2 Delivery O2 Flow Rate FiO2 10/08/17 12:00 98.9 95 18 102/69 (80) 95 10/08/17 09:26 21 10/08/17 08:00 96.5 89 18 133/85 (101) 98 10/08/17 04:00 97.3 88 15 128/93 (105) 94 10/07/17 20:22 21 10/07/17 16:55 97.3 108 16 137/93 (108) 97 I/O 10/07/17 10/07/17 10/07/17 10/08/17 10/08/17 10/08/17 07:00 15:00 23:00 07:00 15:00 23:00 Intake Total 1500 ml 397 ml Output Total 150 ml Balance 1350 ml 397 ml Intake Oral 600 ml IV Total 900 ml 397 ml Output Estimated Blood Loss 150 ml # Voids 1 1 # Bowel Movements 0 Result Diagram: 10/08/17 0531 Procedures Left MARK Objective Remarks Patient's dressing is C/D/I. EHL/TA/G intact. 2+ pedal pulse. Calf is soft and nontender. + SILT. Ecchymosis to the left hip. Assessment & Plan Ortho Post Op Day #: 1 Problem List: Assessment and Plan POD #1: Left MARK 1. WBAT LLE 2. Lovenox was taken from home RX and self administered this morning. Patient' s Xarelto is being held today because of this. Patient was educated that he is not to take Lovenox as a DVT prophylaxis and will instead resume his Xarelto. Patient will take 10 mg dose daily in the hospital and then transition back to his normal 20 mg dose when discharged. Lovenox will be discarded. Patient will also discard previous script for ASA as he will be on Xarelto instead. 3. Ice to the left hip PRN 4. Stable for discharge home with home health tomorrow (Thursday). Will keep patient one more night for pain management. Patient has high tolerance to pain medication due to taking chronic pain medication at home. 5. F/U in the office as previously scheduled with Dr. Ayala or ROSEMARY Castro. Chino Anton Oct 08, 2017 12:33
--- NOTE | 2017-10-08 13:10 | HHI.PR ---
Subjective Remarks Patient seen today around noon. Says that left leg pain continues. Denies any chest. Shortness of breath. Denies any nausea or vomiting. Discussed with nursing. Patient apparently self injected himself with Lovenox he brought from home this morning. Discuss with orthopedic PA as well. Objective Vital Signs Date Time Temp Pulse Resp B/P (MAP) Pulse Ox O2 Delivery O2 Flow Rate FiO2 10/08/17 12:00 98.9 95 18 102/69 (80) 95 10/08/17 09:26 21 10/08/17 08:00 96.5 89 18 133/85 (101) 98 10/08/17 04:00 97.3 88 15 128/93 (105) 94 10/07/17 20:22 21 10/07/17 16:55 97.3 108 16 137/93 (108) 97 I/O 10/07/17 10/07/17 10/07/17 10/08/17 10/08/17 10/08/17 07:00 15:00 23:00 07:00 15:00 23:00 Intake Total 1500 ml 397 ml Output Total 150 ml Balance 1350 ml 397 ml Intake Oral 600 ml IV Total 900 ml 397 ml Output Estimated Blood Loss 150 ml # Voids 1 1 # Bowel Movements 0 Result Diagram: 10/08/17 0531 Objective Remarks GENERAL: Patient sitting up in bed. Appears comfortable. SKIN: Warm and dry. HEAD: Normocephalic. EYES: No scleral icterus. No injection or drainage. NECK: Supple, trachea midline. No JVD. CARDIOVASCULAR: Regular rate and rhythm without murmurs, gallops, or rubs. RESPIRATORY: Breath sounds equal bilaterally. No accessory muscle use. GASTROINTESTINAL: Abdomen soft, non-tender, nondistended. MUSCULOSKELETAL: No cyanosis, or edema. BACK: Nontender without obvious deformity. No CVA tenderness. A/P Assessment and Plan //Atrial fibrillation -With history of stroke in the past. This was felt to be secondary to carotid artery disease, however technically with diagnosis of atrial fibrillation would require bridging nonetheless. -Coagulation as per general surgery. Since patient injected Lovenox, this has been confiscated. AC today will be held, to start on full dose Xarelto tomorrow Patient will be discharged home on full anticoagulation. Patient had spinal anesthesia, so we will continue with neuro checks. //Hypertension. Chronic. Blood pressures acceptable. Continue home amlodipine , metoprolol. //Tobacco abuse. Cessation counseling provided. //Hyperlipidemia. Chronic. Continue home medication. /GERD. Chronic. Continue home PPI. //Depression. Chronic. Continue home medications. Discharge Planning We will continue to follow. Herbie Ariza MD Oct 08, 2017 13:10
[2017-10-08 16:07] VITALS: BP 123/82; PULSE 86; RESP 15; TEMP 98.2; O2SAT 96
[2017-10-08 19:38] VITALS: BP 126/88; PULSE 86; RESP 17; TEMP 98.1; O2SAT 95
[2017-10-08] MEDS: AMITRIPTYLINE HCL 25 MG TAB PO SCH (20:08)
[2017-10-08] MEDS: MULTIVITAMINS/MINERALS THERAPEUTIC TAB PO SCH (20:08)
[2017-10-08] MEDS: DOCUSATE SODIUM 100 MG CAP PO SCH (20:08)
[2017-10-09] VITALS: BP 118/86; PULSE 79; RESP 15; TEMP 96.4; O2SAT 98
[2017-10-09] MEDS: oxyCODONE/ACETAMINOPHEN 10 MG/325 MG TAB PO PRN ×2 (06:06→10:08)
[2017-10-09 07:03] LABS: HEMOGLOBIN 13.2 GM/DL (13.0-17.0); MEAN CELL VOLUME 99.9 FL (80.0-100.0); MEAN CORPUSCULAR HEMOGLOBIN 34.7 PG (27.0-34.0); MEAN CORPUSCULAR HGB CONC 34.7 % (32.0-36.0); MEAN PLATELET VOLUME 9.6 FL (7.0-11.0); PLATELET COUNT 241 TH/MM3 (150-450); RED BLOOD COUNT 3.81 MIL/MM3 (4.50-5.90); RED CELL DISTRIBUTION WIDTH 13.7 % (11.6-17.2); WHITE BLOOD COUNT 12.6 TH/MM3 (4.0-11.0)
[2017-10-09 08:00] VITALS: BP 118/79; PULSE 88; RESP 18; TEMP 96.3; O2SAT 98
[2017-10-09] MEDS: DULoxetine HCl DR 60 MG CAP PO SCH (08:16)
[2017-10-09] MEDS: PANTOPRAZOLE SOD 40 MG DELAYED RELEASE TAB PO SCH (08:16)
[2017-10-09] MEDS: RIVAROXABAN 10 MG TAB PO SCH (08:16)
[2017-10-09] MEDS: SUCRALFATE 1 GM TAB PO SCH ×2 (08:16→12:34)
[2017-10-09] MEDS: MULTIVITAMINS/MINERALS THERAPEUTIC TAB PO SCH (08:16)
[2017-10-09] MEDS: DOCUSATE SODIUM 100 MG CAP PO SCH (08:16)
[2017-10-09] MEDS: PRAVASTATIN SOD 40 MG TAB PO SCH (08:16)
[2017-10-09] MEDS: METOPROLOL TARTRATE 50 MG TAB PO SCH (08:16)
--- NOTE | 2017-10-09 15:46 | HHI.DS ---
Discharge Summary Admission Date Oct 07, 2017 at 05:26 Discharge Date: Oct 09, 2017 Admitting Diagnosis OA of the left hip Status post total hip replacement, left Diagnosis: (1) Osteoarthritis of left hip Diagnosis: Principal ICD Codes: M16.12 - Unilateral primary osteoarthritis, left hip (2) Status post total hip replacement, left Diagnosis: Principal ICD Codes: Z96.642 - Presence of left artificial hip joint Procedures Left MARK Brief History This is a 62 year old male patient with severe OA of the left hip. CBC/BMP: 10/09/17 0509 Significant Findings Laboratory Tests Test 10/08/17 05:31 10/09/17 05:09 Red Blood Count 3.74 MIL/MM3 (4.50-5.90) 3.81 MIL/MM3 (4.50-5.90) Hematocrit 37.1 % (39.0-51.0) 38.0 % (39.0-51.0) Mean Corpuscular Hemoglobin 35.0 PG (27.0-34.0) 34.7 PG (27.0-34.0) White Blood Count 12.6 TH/MM3 (4.0-11.0) PE at Discharge Patient's dressing is C/D/I. EHL/TA/G intact. 2+ pedal pulse. Calf is soft and nontender. + SILT. Ecchymosis to the left hip. Hospital Course The patient was admitted to the hospital with severe OA of the left hip to have a left MARK. The patient's surgery went well with no complications. The patient is WBAT on the LLE. The patient was placed on Xarelto for DVT prophylaxis. The patient is on a regular diet. The patient was discharged home with home health. The patient will f/u in the office as previously scheduled with Dr. Ayala or ROSEMARY Castro. Pt Condition on Discharge: Stable Discharge Disposition: Disch w/ Home Health Serv Discharge Instructions Diet Instructions: As Tolerated, No Restrictions Activities You Can Perform: Weight Bearing as Sascha Activities to Avoid: Strenuous Activity Follow up Referrals: Orthopedics with Darien Ayala MD New Medications: Commode 3-in-1 (Commode 3-in-1) 1 Mis Mis EA .XX DIRECTED, #1 0 Refills Walker with Front Wheels (Walker with Front Wheels) 1 Mis Mis EA .XX DIRECTED, #1 0 Refills Continued Medications: Amitriptyline (Amitriptyline) 25 Mg Tab 25 MG PO HS for Control Depression, #30 TAB 0 Refills Amlodipine (Amlodipine) 10 Mg Tab 10 MG PO DAILY for Blood Pressure Management, #30 TAB 0 Refills Cholecalciferol (Vitamin D3) 5,000 Unit Cap 5000 UNITS PO DAILY for Nutritional Supplement, #30 CAP 0 Refills Cyanocobalamin (B12) 1,000 Mcg Tab 1 TAB PO DAILY Duloxetine DR (Cymbalta DR) 60 Mg Capdr 60 MG PO DAILY, #30 CAP 0 Refills Metoprolol Tartrate (Metoprolol Tartrate) 50 Mg Tab 50 MG PO BID, #60 TAB 0 Refills Multiple Vitamin (Multiple Vitamin) 1 Tab 1 TAB PO DAILY for Nutritional Supplement, TAB 0 Refills Pantoprazole (Pantoprazole) 40 Mg Tab 40 MG PO DAILY for Reflux, #30 TAB 0 Refills Rivaroxaban (Xarelto) 20 Mg Tab 20 MG PO DAILY for Blood Clot Prevention, TAB 0 Refills Simvastatin (Simvastatin) 20 Mg Tab 20 MG PO DAILY for Cholesterol Management, #30 TAB 0 Refills Sucralfate (Carafate) 1 Gm Tab 1 GM PO QID for Ulcer Prevention, #120 TAB 0 Refills On empty stomach Discontinued Medications: Fentanyl Patch 72 HR (Fentanyl Patch 72 HR) 50 Mcg/Hr Patch 50 MCG T-DERMAL Q72H for Pain Management, #10 PATCH 0 Refills Remove old patch when new one placed. Oxycodone-Acetaminophen (Oxycodone-Acetaminophen) 5-325 mg Tab 1 TAB PO Q8H PRN for PAIN, TAB 0 Refills Chino Anton Oct 09, 2017 15:46
== END 2017-10-09 13:16 | disposition home health service (06) | DRG 470 ==
LOC: HSDI 05:26 → N06B 11:14
PROVIDERS: ADMIT Orthopaedic Surgery; ATTEND Orthopaedic Surgery
PROC: 0SRB04A Replacement of Left Hip Joint with Ceramic on Polyethylene Synthetic Substitute, Uncemented, Open Approach (ICD-10-PCS; principal; 2017-10-07 06:49)
DX: M16.12 Unilateral primary osteoarthritis, left hip (principal); I69.354 Hemiplegia and hemiparesis following cerebral infarction affecting left non-dominant side; I10 Essential (primary) hypertension; E78.5 Hyperlipidemia, unspecified; K21.9 Gastro-esophageal reflux disease without esophagitis; F17.210 Nicotine dependence, cigarettes, uncomplicated; F32.9 Major depressive disorder, single episode, unspecified; I48.91 Unspecified atrial fibrillation; J44.9 Chronic obstructive pulmonary disease, unspecified; E53.8 Deficiency of other specified B group vitamins; Z85.01 Personal history of malignant neoplasm of esophagus; Z92.21 Personal history of antineoplastic chemotherapy; Z92.3 Personal history of irradiation
CPT/HCPCS: 73502; 76000; 85027; 86850; 86900; 86901; 94150; C1776; C9290; J0690; J1100; J1580; J2250; J2270; J2370; J3370; J7030; J7050; J7120

== ENCOUNTER 2018-07-15 10:45 | Inpatient (IN) ==
[2018-07-15 15:29] LABS: Baso # (Auto) 0.1 th/mm3 (0.0-0.2); Baso % (Auto) 0.7 % (0.0-2.0); Eos # (Auto) 0.1 th/mm3 (0.0-0.4); Eos % (Auto) 0.8 % (0.0-4.0); Hematocrit 49.5 % (39.0-51.0); Hemoglobin 17.5 gm/dL (13.0-17.0); Lymph # (Auto) 1.4 th/mm3 (1.0-4.8); Lymph % (Auto) 14.5 % (9.0-44.0); Mean Corpuscular HGB Conc 35.4 % (32.0-36.0); Mean Corpuscular Hemoglobin 35.7 pg (27.0-34.0); Mean Corpuscular Volume 100.9 fL (80.0-100.0); Mean Platelet Volume 10.3 fL (7.0-11.0); Mono # (Auto) 1.3 th/mm3 (0.0-0.9); Mono % (Auto) 12.7 % (0.0-8.0); Neut % (Auto) 71.3 % (16.0-70.0); Platelet Count 282 th/mm3 (150-450); Red Blood Count 4.91 mil/mm3 (4.50-5.90); Red Cell Distribution Width 14.1 % (11.6-17.2); White Blood Count 9.9 th/mm3 (4.0-11.0)
[2018-07-15] MEDS ORDERED: Clindamycin 900 mg/NS Premix 900 MG/50 ML PIGGYBACK IV.SIG ONE (15:41)
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
[2018-07-15 15:58] LABS: Calcium 9.6 mg/dL (8.5-10.1); Carbon Dioxide 29.7 meq/L (21.0-32.0); Potassium 3.5 meq/L (3.5-5.1)
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
[2018-07-15] MEDS ORDERED: Acetaminophen 325 MG Tablet PO PRN (17:28)
[2018-07-15] MEDS ORDERED: Bisacodyl 10 MG Supp RECTAL PRN (17:28)
[2018-07-15] MEDS ORDERED: Vancomycin Consult Pharmacy OTHER PRN (17:31)
[2018-07-15] MEDS ORDERED: Vancomycin Inj 1,000 MG in Sodium Chlor 0.9% Inj 250 ML IV.SIG ONE (18:00)
[2018-07-15] MEDS: Senna/Docusate Sodium 8.6/50 MG Tablet PO SCH (20:29)
[2018-07-16] MEDS: Morphine Sulfate Inj 2 MG/ML Vial IV.PUSH PRN ×3 (05:57→23:57)
[2018-07-16] MEDS: Vancomycin Inj 1,000 MG in Sodium Chlor 0.9% Inj 250 ML IV.SIG SCH ×2 (08:27→21:54)
[2018-07-16] MEDS: Senna/Docusate Sodium 8.6/50 MG Tablet PO SCH ×2 (08:28→21:59)
[2018-07-16] MEDS: Rivaroxaban 10 MG Tablet PO SCH (08:28)
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
[2018-07-16] MEDS ORDERED: Collagenase Oint 30 GM Tube TOPICAL ONE (14:00)
[2018-07-16] MEDS: Silver Sulfadiazine 1% Ceam 400 GM Jar TOPICAL SCH ×2 (14:20→22:00)
[2018-07-16] MEDS: Metoprolol Tartrate 50 MG Tablet PO SCH ×2 (14:38→21:53)
[2018-07-16] MEDS: Duloxetine 60 MG DR Capsule PO SCH (14:38)
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
[2018-07-17] MEDS: Morphine Sulfate Inj 2 MG/ML Vial IV.PUSH PRN (06:11)
[2018-07-17] MEDS ORDERED: Pharmacy Ordered Lab Info OTHER ONE (07:45)
[2018-07-17] MEDS: Vancomycin Inj 1,000 MG in Sodium Chlor 0.9% Inj 250 ML IV.SIG SCH (08:24)
[2018-07-17] MEDS: Senna/Docusate Sodium 8.6/50 MG Tablet PO SCH (08:25)
[2018-07-17] MEDS: Duloxetine 60 MG DR Capsule PO SCH (08:25)
[2018-07-17] MEDS: Metoprolol Tartrate 50 MG Tablet PO SCH (08:25)
[2018-07-17 08:32] LABS: Glomerular Filtration Rate Greater Than 89 mL/min (>89)
[2018-07-17] MEDS: Rivaroxaban 10 MG Tablet PO SCH (08:57)
[2018-07-17 12:05] VITALS: RESP 18
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
[2018-07-17 13:26] VITALS: BP 155/92; PULSE 65; TEMP 97.8; O2SAT 94
[2018-07-17] MEDS ORDERED: Collagenase Oint 30 GM Tube TOPICAL ONE (13:30)
[2018-07-17] MEDS ORDERED: Collagenase Oint 30 GM Tube TOPICAL SCH (15:00)
[2018-07-17] MEDS: Silver Sulfadiazine 1% Ceam 400 GM Jar TOPICAL SCH (15:27)
[2018-07-17] MEDS ORDERED: Morphine Sulfate Inj 2 MG/ML Vial IV.PUSH PRN (17:32)
[2018-07-17] MEDS ORDERED: Vancomycin Inj 1,250 MG in Sodium Chlor 0.9% Inj 250 ML IV.SIG SCH (20:00)
[2018-07-18] MEDS ORDERED: Pharmacy Ordered Lab Info OTHER ONE (19:45)
== END 2018-07-17 15:38 | disposition home health service (06) | DRG 935 ==
LOC: NEDA 10:45 → NEPE 10:45 → NEPFCDU 17:56 → N07 07-16 18:23
PROVIDERS: ADMIT Internal Medicine; ATTEND Internal Medicine
CPT/HCPCS: 73630; 80048; 80202; 82565; 82948; 82962; 85025; 87040; 87070; 87205; 90765; 96365; 99285; J2270; J3370; J7050; L3250